=== PATIENT | female | born 1990 | race Caucasian/White ===

== ENCOUNTER 2023-04-30 13:46 | Outpatient (CLI) | payer OTHER, SELFPAY ==
--- NOTE | 2023-04-30 14:00 | CRLHL7_ITS ---
For Patients: As a result of the Cures Act, medical imaging exams and procedure reports are released immediately into your electronic medical record. You may view this report before your referring provider. If you have questions, please contact your health care provider. INDICATION: First trimester dating. TECHNIQUE: Ultrasound OB pelvis transabdominal and transvaginal. Real-time zuñiga-scale imaging of the pelvis was performed. COMPARISON: None. FINDINGS: Intrauterine gestational sac: Present. Embryo present: Yes. Embryo cardiac activity: 187 BPM. [place] rump Length: 2.33 cm. Sonographic gestational age: 9 weeks 0 days. Sonographic estimated due date: December 03, 2023. Yolk sac: Normal. Perigestational hemorrhage: Small measuring 2 x 1 x 1 cm. Ovaries and adnexae: Unremarkable. No suspicious lesions or fluid collections. IMPRESSION: Single viable intrauterine 9 weeks 0 days. Small subchorionic hemorrhage present. No other abnormality. Dictated by Nader Horner MD @ 05/01/2023 9:07:50 AM (Electronically Signed)
== END 2023-04-30 13:47 | disposition home or self-care (01) ==
LOC: US 13:47
PROVIDERS: PCP Physician Assistant Medical; Visit Provider Advanced Practice Midwife
DX: Z34.91 Encounter for supervision of normal pregnancy, unspecified, first trimester (principal); O20.9 Hemorrhage in early pregnancy, unspecified; Z3A.09 9 weeks gestation of pregnancy
CPT/HCPCS: 76817; 84443; 86703; 86706; 86803; 86850; 86900; 86901; 87086; 87340

== ENCOUNTER 2023-04-30 15:15 | Outpatient (CLI) | payer OTHER, SELFPAY | END 2023-04-30 15:16 | disposition home or self-care (01) | PROVIDERS: PCP Physician Assistant Medical; Visit Provider Advanced Practice Midwife | DX: O09.811 Supervision of pregnancy resulting from assisted reproductive technology, first trimester (principal); Z3A.08 8 weeks gestation of pregnancy | CPT/HCPCS: 84443; 86592; 86703; 86704; 86706; 86762; 86787; 86803; 86850; 86900; 86901; 87086; 87340 ==

== ENCOUNTER 2023-09-17 13:35 | Outpatient (CLI) | payer BC, SELFPAY | END 2023-09-17 13:36 | disposition home or self-care (01) | LOC: NFLDREF 09-24 07:48 | PROVIDERS: PCP Physician Assistant Medical; Referring Provider Physician Assistant Medical; Visit Provider Advanced Practice Midwife | DX: Z34.92 Encounter for supervision of normal pregnancy, unspecified, second trimester (principal) | CPT/HCPCS: 86592 ==

== ENCOUNTER 2023-10-15 08:00 | Outpatient (CLI) | payer BC, SELFPAY ==
--- NOTE | 2023-10-15 08:15 | US_ITS ---
Patient: ABEBE ZAYAS Facility:?[facility] Patient ID:?[id number] Site Patient ID:?[id number]. Site :?1990 Study:?US-OB Pelvis OB F/U-10/15/2023 8:56:48 AM Ordering Physician:?Chang Jason Final Report: INDICATION: Third trimester scan, evaluate growth. COMPARISON: 08/06/2023 TECHNIQUE: Real time zuñiga scale imaging of the fetus was performed. FINDINGS: Sonographic imaging demonstrates a single living intrauterine gestation. Fetus demonstrates a regular cardiac rate of 142 beats per minute. Fetus has a vertex position. The placenta lies anteriorly. Amniotic fluid volume appears normal and there is a single deepest vertical pocket: 3.4 cm. The estimated weight is 2532gm which lies at the 96th %. On the prior OB ultrasound exam dated 08/06/2023 the estimated weight was at the 79th%. BPD greater than 97th percentile. HC 92nd percentile. AC 87th percentile. FL 95th percentile. The HC/AC ratio measures 1.06 range (0.93-1.09). IMPRESSION: Sonographic gestational age 35 weeks 4 days and sonographic due date of 11/15/2023. Sonographic age 3 weeks ahead of the clinical age. Estimated weight 96th percentile. Abdominal circumference 87th percentile. Dictated by Sincere Israel MD @ 10/16/2023 9:24:30 AM Signed by:?Sincere Israel MD @10/16/2023 9:24:30 AM (Electronic Signature)
== END 2023-10-15 08:01 | disposition home or self-care (01) ==
LOC: US 08:00
PROVIDERS: PCP Physician Assistant Medical; Visit Provider Advanced Practice Midwife
DX: O09.813 Supervision of pregnancy resulting from assisted reproductive technology, third trimester (principal); Z3A.35 35 weeks gestation of pregnancy
CPT/HCPCS: 76816

== ENCOUNTER 2023-10-23 06:59 | Outpatient (CLI) | payer BC, SELFPAY ==
[2023-10-23 07:09] VITALS: PULSE 85; O2SAT 99
[2023-10-23 07:14] VITALS: PULSE 83; O2SAT 97
[2023-10-23 07:15] VITALS: BP 128/77; PULSE 74
[2023-10-23 07:27] VITALS: RESP 18; TEMP 36.4
--- NOTE | 2023-10-23 08:24 | PC.OBNST ---
NST Note NST Note Start: 10/23/23 07:25 Freq: ONCE Status: Active Protocol: Document 10/23/23 08:20 MMB (Rec: 10/23/23 08:22 MMB [id number]) NST Note 1 Para (# of births) 0 EDC 12/06/23 Gestational Age In Weeks & Days 33 Weeks & 5 Days Reactive Yes Appropriate for Gestational Age Yes RN Sharee López RN Date 10/23/23 Reactive Yes Appropriate for Gestational Age Yes RN Sharee Saunders RN Date 10/23/23 OB NST charge Yes Complete NST Note via Write Note Yes The provider's electronic signature indicates the NST is reactive/appropriate for gestational age. *Note to provider: If an addendum is required, open the patient's chart and click on the note under the Nurse/Allied Health tab.
== END 2023-10-23 07:40 | disposition home or self-care (01) ==
LOC: OB OUT 06:59 → OB 06:59
PROVIDERS: PCP Physician Assistant Medical; Visit Provider Advanced Practice Midwife
DX: O36.8130 Decreased fetal movements, third trimester, not applicable or unspecified (principal); Z3A.33 33 weeks gestation of pregnancy
CPT/HCPCS: 59025; G0463

== ENCOUNTER 2023-11-05 08:10 | Outpatient (CLI) | payer BC, SELFPAY ==
[2023-11-05 08:40] VITALS: RESP 16; TEMP 37
[2023-11-05 08:42] VITALS: BP 129/83; PULSE 109; PULSE 116; O2SAT 97
[2023-11-05 08:59] VITALS: BP 125/80; PULSE 118
[2023-11-05 09:39] LABS: Hematocrit 43.7 % (33.0-51.0); Hemoglobin* 15.2 gm/dL (12.0-16.0); Mean Corpuscular HGB Conc 35 gm/dL (32-36); Mean Corpuscular Hemoglobin 31 pg (26-34); Mean Corpuscular Volume 88 fL (80-100); Platelet Count* 146 K/uL (140-440); Red Blood Count 4.97 m/uL (4.00-5.20); Slide Review Reflex No
[2023-11-05 09:55] LABS: Alanine Aminotransferase* 16 U/L (4-35); Aspartate Amino Transferase* 25 U/L (12-35); Blood Urea Nitrogen* 11 mg/dL (5-24); Creatinine* 0.5 mg/dL (0.5-1.5); Estimated Glomerular Filt Rate 125 ml/min
[2023-11-05 09:57] LABS: Total Protein Urine 8 mg/dL
[2023-11-05 09:58] VITALS: BP 132/88; PULSE 103; PULSE 98; O2SAT 98
[2023-11-05 09:58] LABS: Creatinine Urine 231.7 mg/dL
[2023-11-05] MEDS: LACTATED RINGERS 1000 ML 1,000 ML IV (09:58)
[2023-11-05] MEDS: ONDANSETRON 2 MG/ML inj 4 MG IVP (09:59)
[2023-11-05 10:23] VITALS: BP 122/82; PULSE 93
--- NOTE | 2023-11-05 11:30 | PC.OBNST ---
NST Note NST Note Start: 11/05/23 08:31 Freq: ONCE Status: Active Protocol: Document 11/05/23 11:28 MMB (Rec: 11/05/23 11:30 MMB [id number]) NST Note 1 Para (# of births) 0 EDC 12/06/23 Gestational Age In Weeks & Days 35 Weeks & 4 Days Patient Presented with Complaint(s) of Nausea and vomiting Reactive Yes Appropriate for Gestational Age Yes RN Sharee López RN Date 11/05/23 Reactive Yes Appropriate for Gestational Age Yes ADOLFO Calix RN Date 11/05/23 OB NST charge Yes Complete NST Note via Write Note Yes The provider's electronic signature indicates the NST is reactive/appropriate for gestational age. *Note to provider: If an addendum is required, open the patient's chart and click on the note under the Nurse/Allied Health tab.
== END 2023-11-05 11:10 | disposition home or self-care (01) ==
LOC: OB OUT 08:16 → OB 08:18
PROVIDERS: PCP Advanced Practice Midwife; Visit Provider Advanced Practice Midwife
DX: O21.2 Late vomiting of pregnancy (principal); Z3A.35 35 weeks gestation of pregnancy
CPT/HCPCS: 36415; 59025; 82565; 82570; 84156; 84450; 84460; 84520; 85027; G0463; J2405; J7120

== ENCOUNTER 2023-11-12 13:30 | Outpatient (RCR) | payer BC, SELFPAY | END 2024-01-01 08:05 | disposition home or self-care (01) | PROVIDERS: PCP Physician Assistant Medical; Visit Provider Physician Assistant Medical | DX: N81.89 Other female genital prolapse (principal); Z51.89 Encounter for other specified aftercare | CPT/HCPCS: 97110; 97112; 97140; 97161; 97535 ==

== ENCOUNTER 2023-11-14 09:08 | Outpatient (CLI) | payer BC, SELFPAY ==
--- NOTE | 2023-11-14 09:15 | US_ITS ---
Patient: ABEBE ZAYAS Facility:?[facility] Patient ID:?[id number] Site Patient ID:?[id number]. Site :?1990 Study:?US-OB Pelvis BPP-11/14/2023 9:49:58 AM Ordering Physician:?Jenny Acevedo Final Report: INDICATION: IVF COMPARISON: Ob ultrasound from 10/15/2023 FINDINGS: Transabdominal examination of the is performed. A single intrauterine gestation is seen in cephalic presentation with regular cardiac activity at 142 beats per minute. The placenta is anterior and is free of the cervical os. The placental grade is 1 and the amniotic fluid volume is normal. The DVP is normal at 5.9 cm. The biophysical profile score is 8/8 with no points off. IMPRESSION: 1. Single intrauterine gestation in cephalic presentation with regular cardiac activity. 2. Normal DVP at 5.9 cm. 3. Normal biophysical profile score of 8/8. Dictated by Bahman Goodson MD @ 11/14/2023 8:26:17 PM Signed by:?Bahman Goodson MD @11/14/2023 8:26:17 PM (Electronic Signature)
== END 2023-11-14 09:09 | disposition home or self-care (01) ==
LOC: US 09:08
PROVIDERS: Visit Provider Advanced Practice Midwife
DX: O09.819 Supervision of pregnancy resulting from assisted reproductive technology, unspecified trimester (principal)
CPT/HCPCS: 76819; 87081; 87653

== ENCOUNTER 2023-11-26 14:03 | Outpatient (CLI) | payer BC, SELFPAY ==
--- NOTE | 2023-11-26 14:00 | US_ITS ---
Patient: ABEBE ZAYAS Facility:?[facility] Patient ID:?[id number] Site Patient ID:?[id number]. Site :?1990 Study:?US-OB Pelvis growth/BPP-11/26/2023 2:41:25 PM Ordering Physician:?Flora Bruno Final Report: INDICATION: IVF TECHNIQUE: Real time zuñiga scale imaging of the fetus was performed. COMPARISON: 11/14/2023 FINDINGS: Sonographic imaging demonstrates a single living intrauterine gestation. Fetus demonstrates a regular cardiac rate of 157 beats per minute. Fetus has a vertex position. The placenta lies anteriorly. Amniotic fluid volume appears normal and there is a single deepest pocket of 7.4 cm. The estimated weight is 3848gm which lies at the 88th %. On the prior OB ultrasound dated 10/15/2023 the estimated weight was at the 96th percentile. BPD greater than 97th percentile. HC is 81st percentile. AC 89th percentile. FL is 38th percentile. The fetus was active and demonstrated normal breathing movements. There was normal flexion and extension of the trunk and extremities. IMPRESSION: Normal biophysical profile score 8/8. Sonographic gestational age 39 weeks 3 days and sonographic due date of 11/30/2023. Sonographic age is 6 days ahead of the clinical age. Estimated weight 88th percentile. Abdominal circumference 89th percentile. Dictated by Sincere Israel MD @ 11/27/2023 10:13:27 AM Signed by:?Sincere Israel MD @11/27/2023 10:13:27 AM (Electronic Signature)
== END 2023-11-26 14:04 | disposition home or self-care (01) ==
LOC: US 14:03
PROVIDERS: Visit Provider Obstetrics & Gynecology
DX: O09.813 Supervision of pregnancy resulting from assisted reproductive technology, third trimester (principal); Z3A.39 39 weeks gestation of pregnancy
CPT/HCPCS: 76816; 76819

== ENCOUNTER 2023-12-04 06:32 | Inpatient (IN) | payer BC, SELFPAY ==
[2023-12-04] VITALS (85 sets, daily range): BP systolic 84–140; BP diastolic 53–93; PULSE 60–113; RESP 16; TEMP 36.6–37.3; O2SAT 97–100
--- NOTE | 2023-12-04 06:20 | W.PM.LDBA ---
Subjective History of Present Illness Narrative: Beronica is a 33 yo at 39 5/7 weeks gestation being admitted to Labor and Delivery for spontaneous onset of labor. Her contractions start as mild and irregular a few days ago. She was seen yesterday in clinic and felt that since she woke up she was having more period like cramps and some bloody show. Throughout the day, the contractions continued to become closer and more regular. She called last evening with some continued spotting but elected to continue to monitoring and labor for longer at home. She presented early this morning when contractions were about every 5 minutes apart. She was rechecked in triage after 2 hours and had made significant change and is requesting an epidural. She denies any leaking of fluid and bleeding is now less than prior. She is supported in labor by her , Thuy. Her full history and physical was dictated by Dr. Bruno on 11/19/2023. Please see this for details. Specific Issues/Plans - Thuy (They have a son, whom Thuy carried) Verito Ford H&P done by Dr. Bruno on 11/19/23 1. IVF recommended level II US with echo for 20 wk: Breech. Anterior placenta, no previa. 3 vessel cord. SDP 4.9. EFW 89%. No abnormalities, but missing views. 08/06/2023: Unremarkable follow-up US with normal echo. Growth at 32 wks: EFW 96% Growth at 38.4 wks: EFW 87%, BPP 8/8, SDP 7.4 Weekly NST at 36 weeks ([facility] recommends weekly BPP): will alternate between NST and BPP. Testing worksheet filled out. taking until 05/10 estrace 2mg BID and progesterone in oil 1x daily per fertility clinic 2. Anxiety on Lexapro, increased to 20 mg at 36 wks has seen therapist in past, considering restarting 3. AMA will be 35 at time of delivery declined genetic screening level II planned for IVF: see above 4. Hx of endometrioma removal pt to request records 5. Asthma takes daily Singulair does not have inhaler currently, not used for years 6. Rubella NON immune, needs vaccine PP. 7. Covid in at 15-16 weeks 8. Low platelets at 35 weeks -146 previous results in 200's--Consider platelet check on admit COVID: initial series boosted x2 Flu: 04/30/2023 TDAP: 10/01/2023 32wk Mental Health: 10/15/2023 PHQ: 0 VETO: 1 34wk Hgb:15.2 OB - Problem Based A/P Additional Plan (1) Pain during labor: Status: Acute (2) resulting from in-vitro fertilization: Status: Acute (3) Asthma: Problem details: takes singulair daily Status: Acute (4) Anxiety: Status: Acute (5) 39 weeks gestation of : Status: Acute Plan ASSESSMENT:? 35 at 39 5/7 weeks gestation? complicated by:?IVF , Anxiety, AMA, Hx of endometrioma removal, mild asthma, Rubella non-immune, low platelets at 35 weeks Labor type: Spontaneous, Early labor? Category 1 FHR pattern.?? Labor complicated by: none? GBS negative? ? PLAN:? 1. Routine intrapartum cares as ordered. Continue with expectant management? 2. Monitoring per policy, continuous with epidural? 3. Desires epidural. Candidate for analgesia of choice when requested. CBC on admission due to previously mildly low platelets.?? 4. Patient encouraged to reposition and ambulate to promote physiologic labor and .? 5. Anticipate Delivery/Labor/Induction Plan Plan: expectant management OB Exam Physical Exam Vital signs: Pulse BP Pulse Ox 60 136/85 100 12/04/23 04:18 12/04/23 04:18 12/04/23 04:24 Narrative: Vitals Reviewed Constitutional:? Alert and oriented x3 HEENT:? Normocephalic, atraumatic Neck:? Supple Lungs:? Clear to auscultation bilaterally Heart:? Regular rate and rhythm, no murmur, rub or gallop Abdomen:? Soft, nontender, and gravid. Vertex by Matt's, confirmed with cervical exam. Extremities:? No edema or erythema Cervix: 4 cm/50%/-1 station/vertex per RN, posterior NST: 135 bpm/moderate variability/15x15 accelerations/no decelerations/contractions every 1-3 minutes
[2023-12-04] MEDS: LACTATED RINGERS 1000 ML 1,000 ML 500 ML IV ×2 (06:46→08:55)
[2023-12-04 06:54] LABS: Basophils Absolute Auto 0.01 K/uL (0.00-0.30); Basophils Percent Auto 0.1 % (0.0-3.0); Eosinophils Absolute Auto 0.02 K/uL (0.00-0.50); Eosinophils Percent Auto 0.2 % (0.0-7.0); Hematocrit 42.4 % (33.0-51.0); Hemoglobin* 14.7 gm/dL (12.0-16.0); Immature Granulocytes Abs Auto 0.04 K/uL (0.00-0.30); Immature Granulocytes Pct Auto 0.4 %; Lymphocytes Percent Auto 17.8 % (20-44); Mean Corpuscular HGB Conc 35 gm/dL (32-36); Mean Corpuscular Hemoglobin 30 pg (26-34); Mean Corpuscular Volume 87 fL (80-100); Monocytes Percent Auto 5.7 % (0.0-11.0); Neutrophils Percent Auto 75.8 % (42.0-72.0); Platelet Count* 247 K/uL (140-440); RDW Coefficient of Variation % 12.1 % (11.5-15.5); White Blood Count* 10.06 K/uL (4.50-11.00)
[2023-12-04 06:56] LABS: Slide Review Reflex No
--- NOTE | 2023-12-04 08:14 | P.OBPN_ITS ---
Subjective Time Seen by Provider: 08:14 Date Seen: 12/04/23 Narrative: Beronica is ambulating in the cronin supported by her up partner. She did want an epidural and her IV bolus was started but after her planting machine operator arrived she decided she would like to do a few position changes and ambulate before planning on getting an epidural. They are working on side lying release. She is having some back pain with contractions so encouraged upright and for hanson leaning positions. She is breathing through contractions and coping well at this time. Objective Vital Signs: Last Vital Signs Pulse 60 12/04/23 04:18 BP 136/85 12/04/23 04:18 Pulse Ox 100 12/04/23 04:24 Contractions Monitor mode: External Contraction Frequency: 2-5 Contraction pattern: Regular Assessment Assessment: early labor Heart Rate Baseline: [address] Half-[address] Variability: Moderate (6-25) Monitor Accelerations: Present Monitor Decelerations: None Plan Plan: ASSESSMENT:? 35 at 39 5/7 weeks gestation? complicated by:?IVF , Anxiety, AMA, Hx of endometrioma removal, mild asthma, Rubella non-immune, low platelets at 35 weeks Labor type: Spontaneous, Early labor? Category 1 FHR pattern.?? Labor complicated by: none? GBS negative? ? PLAN:? 1. Routine intrapartum cares as ordered. Continue with expectant management? 2. Monitoring per policy, continuous with epidural? 3. Desires epidural. Candidate for analgesia of choice when requested.?? 4. Patient encouraged to reposition and ambulate to promote physiologic labor and .? 5. Anticipate
[2023-12-04] MEDS: LIDOCAINE 2% (PF) 5 ML VIAL EPIDURAL (09:04)
[2023-12-04] MEDS: ROPIVACAINE 0.2% 100 ml 100 ML 12 MG EPIDURAL ×2 (09:06→17:08)
--- NOTE | 2023-12-04 09:14 | P.ANBPRC_ITS ---
[facility] Medical History Endometrioma ?N80.129 - Deep endometriosis of ovary, unspecified ovary (ICD-10) Family History Paternal Grandfather Cardiovascular disease Sister Diabetes Thyroid disease Sister Thyroid disease Social History Narrative: SOCIAL? ? Education: masters? ? Work: Mental health therapist with the [employer]? ? Partner: Thuy? works as a PT? Lives with: Thuy and Jamal age 2 (their child her partner carried)? ? Pets: one dog? ? Abuse: Denies past Safe at home with current partner ? ? ? Special Diet: Denies? ? Ok with a blood transfusion: yes? ? Culture or temple beliefs: denies? RISK FACTORS? ? Exercise Times/wk: 3-5 times a week, weight training and running? ? Depression/Anxiety: anxiety currently on Lexapro? ? Previous Treatments yes medication and therapy in past ? Therapy planning to restart VETO: 5 PHQ 9: 2? ? Seat Belt Use: Routinely ? Smoking: Denies past/present? ? Alcohol/day: Denies while , social drinker when not Caffeine: one cup of coffee day? ? Drug Use: Denies past/present? What is your current living situation?: I presently have a place to live Problems where you live: no known problems In the past 12 months, utilities in danger of being shut off: no In past 12 months, lack of transportation kept you from medical appts, meetings, work, or getting things needed for daily living: no In the past 12 mos, have been you worried that your food would run out before you had money to buy more?: never true In the past 12 mos, the food you bought just didn't last and you didn't have money to buy more?: never true Smoking Status: Never smoker How often does anyone, including family, friends and others, physically hurt you : never How often does anyone, including family, friends and others, insult or talk down to you: never How often does anyone, including family, friends and others, threaten you with harm: never How often does anyone, including family, friends and others, scream or curse at you: never Little interest or pleasure in doing things: not at all Feeling down, depressed, or hopeless: not at all Meds Home Medications and Allergies Home Medications ?Medication ?Instructions ?Recorded ?Confirmed ?Type aspirin 81 mg chewable tablet 81 mg PO QDAY 04/30/23 12/04/23 History cetirizine 10 mg tablet (Zyrtec) 10 mg PO QDAY PRN 04/30/23 12/04/23 History cholecalciferol (vitamin D3) 50 50 mcg PO QDAY 04/30/23 12/04/23 History mcg (2,000 unit) capsule escitalopram oxalate 10 mg tablet 10 mg PO QDAY 04/30/23 12/04/23 History (Lexapro) montelukast 10 mg tablet 10 mg PO QDAY 04/30/23 12/04/23 History vits no.126-ferrous fum 1 tab PO DAILY 04/30/23 12/04/23 History 28 mg iron-folic acid 800 mcg tablet (Classic ) Allergies Allergy/AdvReac Type Severity Reaction Status Date / Time Penicillins Allergy Mild Hives Verified 12/03/23 14:01 Results Labs Labs: Laboratory Results - last 24 hr 12/04/23 06:26 WBC 10.06 RBC 4.90 Hgb 14.7 Hct 42.4 MCV 87 MCH 30 MCHC 35 RDW Coeff of Jaydon 12.1 Plt Count 247 Neut % (Auto) 75.8 H Lymph % (Auto) 17.8 L Terrell % (Auto) 5.7 Eos % (Auto) 0.2 Baso % (Auto) 0.1 Neut # (Auto) 7.60 H Lymph # (Auto) 1.80 Terrell # (Auto) 0.60 Eos # (Auto) 0.02 Baso # (Auto) 0.01 Abs Immat Gran (auto) 0.04 Imm/Tot Granulo (auto) 0.4 Blood Type A Positive Antibody Screen NEGATIVE Vital Signs Vital Signs: Last Vital Signs Pulse 86 12/04/23 09:12 BP 122/82 12/04/23 09:12 Pulse Ox 97 12/04/23 09:13 Weight: 86.5 kg Anesthesia Procedures Epidural Insertion Patient Location: OB Start Time: 08:50 Stop Time: 09:20 Start Date: 12/04/23 Stop Date: 12/04/23 Reason for Block: primary anesthetic Patient Position: sitting Performed By: Ravinder Milan Preanesthetic Checklist: IV checked, risks and benefits discussed, surgical consent, monitors and equipment checked, pre-op evaluation, timeout performed and anesthesia consent Prep: chlorhexidine gluconate Monitoring: blood pressure monitoring, monitoring and evaluation advisor, continuous pulse oximetry and heart rate Approach: midline Vertebral Space: lumbar (1-5) Needle Type: Tuohy needle Injection Technique: continuous catheter (catheter) Needle gauge: 17 Needle Length (cm): 10 cm Needle Insertion Depth (cm): 5 Catheter Gauge: 19 Catheter Type: multi-orifice Catheter at skin depth (cm): 10 Test Dose Result: negative and lidocaine 1.5% with epinephrine 1 to 200,000
--- NOTE | 2023-12-04 13:37 | PM.OBPNL ---
Subjective Time Seen by Provider: 13:00 Date Seen: 12/04/23 Narrative: Beronica is now resting comfortably with an effective epidural in place. Requested a SVE and found to be 6cm/90%/-1 and intact. Discussed and offered AROM but declines at this time. Continue to labor and reassess in a few hours or as requested. Objective Vital Signs: Last Vital Signs Temp 98 F 12/04/23 11:03 Pulse 72 12/04/23 13:34 BP 122/73 12/04/23 13:34 Pulse Ox 97 12/04/23 09:13 Pelvic Exam Dilation (cm): 6 Effacement (%): 90 Station: -1 Contractions Contraction Frequency: 3-9 minutes Contraction pattern: Irregular Assessment Assessment: active labor Station: -1 Heart Rate Baseline: 130 Telephone Order Dispatcher Variability: Moderate (6-25) Monitor Accelerations: Present Monitor Decelerations: None Plan Plan: ASSESSMENT:? 35 at 39 5/7 weeks gestation? complicated by:?IVF , Anxiety, AMA, Hx of endometrioma removal, mild asthma, Rubella non-immune, low platelets at 35 weeks Labor type: Spontaneous, active labor? Category 1 FHR pattern.?? Labor complicated by: none? GBS negative? ? PLAN:? 1. Routine intrapartum cares as ordered. Continue with expectant management? 2. Monitoring per policy, continuous with epidural? 3. Effective epidural analgesia in place. 4. Patient encouraged to reposition to promote physiologic labor and .? 5. Anticipate
[2023-12-04] MEDS: OMEPRAZOLE 20 MG CAPSULE DR 40 MG PO (15:12)
[2023-12-04] MEDS: LACTATED RINGERS 1000 ML 1,000 ML 125 ML IV (15:19)
--- NOTE | 2023-12-04 16:33 | PM.OBPNL ---
Subjective Date Seen: 12/04/23 Narrative: Beronica is requesting a SVE and consider AROM. AROM performed without difficultly with moderate amount of thinly stained meconium fluid. She is still comfortable with her epidural and feeling good. She is currently in throne position and has been rotating into multiple positions throughout labor. Objective Vital Signs: Last Vital Signs Temp 98 F 12/04/23 11:03 Pulse 85 12/04/23 16:33 BP 123/79 12/04/23 16:33 Pulse Ox 97 12/04/23 09:13 Pelvic Exam Dilation (cm): 8 Effacement (%): 90 Station: 0 Contractions Monitor mode: External Contraction Frequency: 2-5 Contraction pattern: Regular Contraction intensity: Strong/Firm Assessment Assessment: active labor Station: 0 Amniotic Membrane Status: AROM Status: Category ll Heart Rate Baseline: 140 Commercial Lending Vice President Variability: Moderate (6-25) Monitor Accelerations: Present Monitor Decelerations: Variable (one variable after AROM but none since) Plan Plan: ASSESSMENT:? 35 at 39 5/7 weeks gestation? complicated by:?IVF , Anxiety, AMA, Hx of endometrioma removal, mild asthma, Rubella non-immune, low platelets at 35 weeks Labor type: Spontaneous, active labor? Category 1 FHR pattern.?? Labor complicated by: thin meconium stained fluid? GBS negative? ? PLAN:? 1. Routine intrapartum cares as ordered. Continue with expectant management? 2. Monitoring per policy, continuous with epidural? 3. Effective epidural analgesia in place. 4. Patient encouraged to reposition to promote physiologic labor and .? 5. Anticipate
[2023-12-04] MEDS: ACETAMINOPHEN 500 MG TABLET 1000 MG PO (20:38)
[2023-12-05] VITALS (38 sets, daily range): BP systolic 108–154; BP diastolic 70–88; PULSE 70–131; RESP 14–16; TEMP 36.6–36.9; O2SAT 94–98
[2023-12-05] MEDS: LACTATED RINGERS 1000 ML 1,000 ML 125 ML IV ×2 (00:34→03:18)
[2023-12-05] MEDS: ROPIVACAINE 0.2% 100 ml 100 ML 12 MG EPIDURAL (00:48)
--- NOTE | 2023-12-05 01:04 | P.OBPN_ITS ---
Subjective Date Seen: 12/05/23 Narrative: Beronica progressed to complete and began pushing around 0. She has been pushing effectively and has been in many different positions with help from her partner, non cdl driver and the nursing staff. She has now been pushing for 3 hours. We discussed risks of prolonged pushing including risks to baby, hemorrhage and maternal exhaustion. Discussed options for proceeding including delivery, expectant management, and MD evaluation for possibly other options such as opera tive vaginal delivery. She would like to have an MD evaluation and she was notified. Will plan to continue to push and change positions as needed until she arrives Objective Vital Signs: Last Vital Signs Temp 99.1 F 12/04/23 21:48 Pulse 81 12/05/23 00:49 Resp 16 12/04/23 20:33 BP 141/80 H 12/05/23 00:49 Pulse Ox 98 12/04/23 18:37 Pelvic Exam Dilation (cm): 10 Effacement (%): 100 Station: +1 to +2 with pushing Contractions Monitor mode: External Contraction Frequency: 2-4 Contraction pattern: Regular Contraction intensity: Strong/Firm Assessment Assessment: active labor Station: +1 Amniotic Membrane Status: AROM Status: Category ll Heart Rate Baseline: 155 Paddock Judge Variability: Moderate (6-25) Monitor Accelerations: Present Monitor Decelerations: Variable Plan Plan: ASSESSMENT:? 35 at 39 6/7 weeks gestation? complicated by:?IVF , Anxiety, AMA, Hx of endometrioma removal, mild asthma, Rubella non-immune, low platelets at 35 weeks Labor type: Spontaneous, active labor? Category 1 FHR pattern.?? Labor complicated by: thin meconium stained fluid? GBS negative? ? PLAN:? 1. Routine intrapartum cares as ordered. Continue with expectant management? 2. Continuous monitoring per policy.? 3. Effective epidural analgesia in place. 4. Patient encouraged to change positions to promote physiologic labor and .? 5. Pushing for 3+ hours. MD notified to evaluate per patients request. 5. Anticipate .
--- NOTE | 2023-12-05 01:58 | P.OBCN_ITS ---
OB - CN: HPI Date of Consult Time Seen by Provider: 01:58 Date Seen: 12/05/23 Patient: [facility] Patient Consult date: 12/05/23 Requesting Physician: Jenny Acevedo CNM Primary Care Provider: Not a Local Provider Consult Narrative Reason for consult: arrest of labor Narrative: The patient is a 33 year old G 1 P 0 at 39 weeks and 6 days gestation that was admitted to the Center on 12/04/23 for spontaneous onset of labor. Post called to see the patient by Jenny Acevedo CNM for arrest of descent after 3.5 hours of pushing the patient has made minimal progress in descent in the last hour. Assessment for possible operative vaginal delivery versus delive ry requested. History of Present Dating criteria: based on LMP care: good care Ultrasounds: normal 1st trimester US and normal mid trimester US History History 1 Elective abortions Para 0 Spontaneous abortions Hx # Term Pregnancies Ectopic pregnancies Hx # Pregnancies Multiple births Number of Living Children 0 Labs GBS status: negative OB Labs: Lab Assessment Start: 12/04/23 06:36 Freq: ONCE Status: Complete Protocol: PC.OBGBS Activity Type Activity Date Activity User E-sign Co-sign Detail Recorded Client Recorded Date Recorded By Document 12/04/23 07:39 ROAMANUEL [id number] 12/04/23 07:39 ROYB 12/04/23 07:39 Lab Assessment GBS Status negative GBS Additional Criteria None Are Labs Available Yes Maternal Blood Type A Maternal RH Factor Positive Evaluate Maternal Rubella Immune Status Non-Immune Hepatitis B Surface Antigen Negative Maternal HIV Status Negative Maternal Syphillis (RPR) Status Negative PFSH PFSH Medical History Endometrioma ?N80.129 - Deep endometriosis of ovary, unspecified ovary (ICD-10) Family History Paternal Grandfather Cardiovascular disease Sister Diabetes Thyroid disease Sister Thyroid disease Social History Narrative: SOCIAL? ? Education: masters? ? Work: Mental health therapist with the [employer]? ? Partner: Thuy? works as a PT? Lives with: Thuy and Max age 2 (their child her partner carried)? ? Pets: one dog? ? Abuse: Denies past Safe at home with current partner ? ? ? Special Diet: Denies? ? Ok with a blood transfusion: yes? ? Culture or denominational beliefs: denies? RISK FACTORS? ? Exercise Times/wk: 3-5 times a week, weight training and running? ? Depression/Anxiety: anxiety currently on Lexapro? ? Previous Treatments yes medication and therapy in past ? Therapy planning to restart VETO: 5 PHQ 9: 2? ? Seat Belt Use: Routinely ? Smoking: Denies past/present? ? Alcohol/day: Denies while , social drinker when not Caffeine: one cup of coffee day? ? Drug Use: Denies past/present? What is your current living situation?: I presently have a place to live Problems where you live: no known problems In the past 12 months, utilities in danger of being shut off: no In past 12 months, lack of transportation kept you from medical appts, meetings, work, or getting things needed for daily living: no In the past 12 mos, have been you worried that your food would run out before you had money to buy more?: never true In the past 12 mos, the food you bought just didn't last and you didn't have money to buy more?: never true Smoking Status: Never smoker How often does anyone, including family, friends and others, physically hurt you : never How often does anyone, including family, friends and others, insult or talk down to you: never How often does anyone, including family, friends and others, threaten you with harm: never How often does anyone, including family, friends and others, scream or curse at you: never Little interest or pleasure in doing things: not at all Feeling down, depressed, or hopeless: not at all Meds Home Medications and Allergies Home Medications ?Medication ?Instructions ?Recorded ?Confirmed ?Type aspirin 81 mg chewable tablet 81 mg PO QDAY 04/30/23 12/04/23 History cetirizine 10 mg tablet (Zyrtec) 10 mg PO QDAY PRN 04/30/23 12/04/23 History cholecalciferol (vitamin D3) 50 50 mcg PO QDAY 04/30/23 12/04/23 History mcg (2,000 unit) capsule escitalopram oxalate 10 mg tablet 10 mg PO QDAY 04/30/23 12/04/23 History (Lexapro) montelukast 10 mg tablet 10 mg PO QDAY 04/30/23 12/04/23 History vits no.126-ferrous fum 1 tab PO DAILY 04/30/23 12/04/23 History 28 mg iron-folic acid 800 mcg tablet (Classic ) Allergies Allergy/AdvReac Type Severity Reaction Status Date / Time Penicillins Allergy Mild Hives Verified 12/03/23 14:01 OB - H&P: Exam Physical Exam: Vital signs: Temp Pulse Resp BP Pulse Ox 99.1 F 92 16 132/75 98 12/04/23 21:48 12/05/23 01:49 12/04/23 20:33 12/05/23 01:49 12/04/23 18:37 Narrative: General: Patient very uncomfortable with contractions and complaining of pain in her left hip. Vital signs: Per the patient's electronic medical record SVE: Complete/100%/0 to +1 station. Asynclytic and OT. OB - Results Labs Labs: Short CBC 12/04/23 Range/Units 06:26 WBC 10.06 (4.50-11.00) K/uL Hgb 14.7 (12.0-16.0) gm/dL Hct 42.4 (33.0-51.0) % Plt Count 247 (140-440) K/uL OB - CN: A/P Assessment and Plan (1) Pain during labor: Status: Acute (2) resulting from in-vitro fertilization: Status: Acute (3) Asthma: Problem details: takes singulair daily Status: Acute (4) Anxiety: Status: Acute (5) 39 weeks gestation of : Status: Acute (6) Arrest of descent, delivered, current hospitalization: Start date: 12/05/23 Start time: 03:00 Status: Acute Assessment and Plan: 1. Recommended primary low-transverse for arrest of descent 2. Consent form reviewed and signed. 3. Patient for surgery.
--- NOTE | 2023-12-05 02:03 | P.PCN_ITS ---
Procedure Note Time Seen by Provider: 04:09 Date Seen: 12/05/23 Date of procedure: 12/05/23 Will [facility] bill your pro fee for this procedure?: Yes Procedure: Preoperative diagnosis: 33 year-old 1 para 0 at 39 and 6/7 weeks Arrest of descent, suspect OT presentation and asynclitic Postoperative diagnosis: Same, ROT presentation Procedure: Primary low-transverse section Anesthesia: Epidural Surgeon: Ramonita Ashley MD Ground Equipment Mechanic: Not applicable Estimated blood loss: 770 mL IV Fluid: 1000 mL UOP: 500 mL Specimen: Placenta to pathology, cord gases Drain(s): Resendiz to gravity Findings: A live female infant was delivered from the are OT position at 3:27 a.m.. Apgars were 5 at 1 min and 8 at 5 min, respectively. Infant weight: 8 lb 9 oz. Nuchal cord(s): Single nuchal cord that was loose and easily reduced prior to delivery of the infant's body. The placenta was delivered spontaneously and complete at 3:29 a.m.. Amniotic fluid: Thick meconium meconium stained. Normal uterus, fallopian tubes and ovaries were noted. Procedure: Beronica was taken to the OR where epidural anesthetic was found be adequate. A Resendiz catheter was placed. The patient was then placed in the dorsal supine pos ition with a leftward tilt. She was then prepped and draped in a normal sterile manner. A Pfannenstiel skin incision was made and carried through sharply to the underlying layer of fascia. Fascia was incised in the midline and this incision carried laterally with Sam scissors. The superior aspect of fascial incision was grasped with Lauren clamps, tented up, and the rectus muscles dissected off with a combination of blunt and sharp dissection. The inferior aspect of the fascial incision was not dissected of the rectus muscles. The rectus muscles were in the midline. The peritoneum was entered bluntly. This opening was extended bluntly. An Zeyad-O self-retaining retractor was placed. A bladder flap was not created. Uterus was incised in a low transverse manner in the midline. This incision carried laterally with blunt pressure on the inferior and superior aspects of the uterine incision. The amniotic sac was ruptured. The 's head was somewhat impacted in the pelvis so the head needed to be lifted to the incision and the left rectus muscle was incised to allow room for the infant's head to be delivered. The 's head and body was delivered atraumatically. The infant was shown to the patient and her support person and then handed to waiting pediatric and nursing staff. The placenta was delivered spontaneously. The uterus was cleared of clots and debris. The uterine incision was re-approximated with the uterus in vivo. The 1st layer using 0-Vicryl in a running, locked manner. The 2nd layer using 0-Monocryl in a running, vertical, imbricating laye r. Additional sutures needed for hemostasis: Yes: 2 figure of 8 sutures using 2-0 chromic. Ramandeep was applied to the uterine incision. Excellent hemostasis was verified. The Zeyad retractor was removed. The rectus muscles were not reapproximated. The rectus muscles were then closely inspected to verify hemostasis. Hemostasis was obtained with bipolar cautery. The fascia was then re-approximated using 0-Maxon loop in a running manner. The subcutaneous tissue was then irrigated with saline and hemostasis obtained with bipolar cautery. The subcutaneous tissue was re-approximated using 3-0 plain gut in a running manner. The skin was reapproximated using 4-0 Monocryl in a running subcuticular manner. Exofin skin adhesive and a Mepiplex dressing were applied. The patient tolerated this procedure well. Sponge, lap and instrument counts were correct x2 active to the procedure. Patient was taken to the recovery area in stable condition. The patient received 2g of IV Ancef and 500 mg of IV is azithromycin prior to skin incision.
[2023-12-05] MEDS: CEFAZOLIN 2 GM INJ IVP (02:58)
--- NOTE | 2023-12-05 04:56 | W.ANESCHARGE ---
Anesthesia Charges Start Date/Time Anesthesia Start Date: 12/05/23 Anesthesia Start Time: 02:55 Stop Date/Time Anesthesia Stop Date: 12/05/23 Anesthesia Stop Time: 04:30 Summary Emergency: FAST FOOD COOK
--- NOTE | 2023-12-05 04:57 | P.NB_ITS ---
Nerve Block Nerve Block Time Seen by Provider: 04:25 Date Seen: 09/19/23 Type of block requested by surgeon for post-operative analgesia: TAP Side: bilateral Time out performed: Yes Verification of patient name: Yes Verification of date of : Yes Site marking: site marked Name of person performing procedure: Silvina ramirez Continuous monitoring Was continuous monitoring of O2 sat, B/P, life skills instructor, recorded every 15 minutes?: Yes Procedure Checklist: sterile prep, needles and gloves Ultrasound guided. Images saved: Yes Medications given in 5ml increments after negative aspiration: Marcaine %: 0.25 mL: 20 and Exparel mL: 10 Patient tolerated procedure well: Yes Block Charges Block Charge (with Pro Fee): TAP Bilateral Use of Ultrasound Machine for Block: Yes- US Guidance/pain block
[2023-12-05] MEDS: ESCITALOPRAM 10 MG TABLET PO (08:29)
[2023-12-05] MEDS: ACETAMINOPHEN 500 MG TABLET 1000 MG PO ×2 (08:55→19:48)
[2023-12-05] MEDS: KETOROLAC 30 MG/ML inj IVP ×3 (09:50→22:04)
[2023-12-05] MEDS: OMEPRAZOLE 20 MG CAPSULE DR 40 MG PO (12:10)
--- NOTE | 2023-12-05 13:35 | PM.ANPOST ---
Post Anesthesia Note Post Anesthesia Note Patient seen: Inpatient Respiratory Status: adequate Cardiovascular Status: adequate Mental Status: baseline Pain: adequate Temp: baseline Anesthetic awareness: N/A Complications: none Follow care: none
[2023-12-05 18:46] LABS: Rapid Plasma Reagin (RPR) Non Reactive (Non Reactive)
[2023-12-05] MEDS: DOCUSATE SODIUM 100 MG CAPSULE PO (21:09)
[2023-12-05] MEDS: CETIRIZINE HCL 10 MG TABLET PO (21:09)
[2023-12-05] MEDS: MONTELUKAST 10 MG TABLET PO (21:09)
[2023-12-06] VITALS (8 sets, daily range): BP systolic 112–128; BP diastolic 79–86; PULSE 64–76; RESP 14–18; TEMP 26.5–36.8; O2SAT 96–97
[2023-12-06] MEDS: KETOROLAC 30 MG/ML inj IVP ×2 (03:51→09:57)
[2023-12-06] MEDS: OMEPRAZOLE 20 MG CAPSULE DR 40 MG PO (06:49)
[2023-12-06] MEDS: ACETAMINOPHEN 500 MG TABLET 1000 MG PO ×3 (06:49→19:07)
--- NOTE | 2023-12-06 09:13 | PM.OBPNVD1 ---
OB - PN:Subj Subjective Time Seen by Provider: 09:13 Date Seen: 12/06/23 Patient comments OB post-: no complaints status: feeding status: exclusively Narrative: POD#1 s/p uncomplicated delivery. She is ambulating without difficulty, urinating adequately and pain is well controlled. Denies concerns. She is exclusively without difficulty. OB - PN: Obj Exam Physical Exam: Vital signs: Temp Pulse Resp BP Pulse Ox O2 Del Method 97.7 F 64 16 112/80 97 Room Air 12/06/23 03:05 12/06/23 03:05 12/06/23 03:58 12/06/23 03:05 12/06/23 03:05 12/06/23 03:05 Narrative: GENERAL APPEARANCE: Pleasant, , well-groomed woman in no acute distress. VITAL SIGNS: as noted in nursing notes HEAD: Normocephalic, atraumatic. THYROID: no masses, nodularity, tenderness or enlargement. LUNGS: Clear to auscultation bilaterally without wheezes, rales or rhonchi. HEART: Regular rate and rhythm with normal S1 and S2. No gallop, rub or murmur. ABDOMEN: Gravid. Soft, nontender, nondistended, with normal bowels sounds throughout. FUNDUS: 1 cm below the umbilicus in the midline and firm. INCISION: Clean, dry and intact with sutures and skin adhesive gel. EXTREMITIES: No cyanosis, clubbing. 1+ bilateral lower extremity edema to the ankle: Normal. Now varicosities. NEUROLOGIC: Normal gait and balance. Normal deep tendon reflexes at bilateral patella 2+/2, equal without clonus. PSYCHIATRIC: alert and oriented x3. Normal speech pattern, eye contact and affect. SKIN: Warm, dry, and well perfused. Good turgor. No lesions, nodules or rashes. Urinary Catheter Management: Urethral: Cath placed during this visit: yes, but has since been removed by the nurse Reason for continuing: decision to DC catheter Insertion date: 12/05/23 Insertion time: 02:55 Removal date: 12/05/23 Removal time: 11:15 OB - PN: Obj Data Labs Labs: Laboratory Results - last 24 hr 12/04/23 12/06/23 06:26 06:17 Hgb 12.0 RPR Screen Non Reactive OB - PN: A/P Delivery Assessment and Plan (1) Status post primary low transverse section: Problem details: Girl, Sola Emanuel, Apgars 5/8, weight 8#9oz. Status: Acute Assessment and Plan: 1. Continue postoperative care. 2. Planning discharge home tomorrow.
[2023-12-06] MEDS: IBUPROFEN 600 MG TABLET PO ×2 (16:12→22:09)
[2023-12-06] MEDS: ESCITALOPRAM 10 MG TABLET PO (21:09)
[2023-12-06] MEDS: MONTELUKAST 10 MG TABLET PO (21:17)
[2023-12-06] MEDS: CETIRIZINE HCL 10 MG TABLET PO (21:17)
[2023-12-06] MEDS: DOCUSATE SODIUM 100 MG CAPSULE PO (22:17)
[2023-12-07] MEDS: ACETAMINOPHEN 500 MG TABLET 1000 MG PO ×2 (02:01→08:08)
[2023-12-07] MEDS: IBUPROFEN 600 MG TABLET PO ×2 (04:19→10:31)
--- NOTE | 2023-12-07 04:22 | P.DS_ITS ---
DS: Providers Provider Time Seen by Provider: 04:23 Date Seen: 12/07/23 Date of admission: 12/04/23 06:32 Primary care physician: Not a Local Provider Admitting Clinician: Jenny Acevedo CNM Attending Physician on discharge: Ramonita Ashley MD DS: Diagnosis Discharge Diagnosis (1) Status post primary low transverse section: Status: Acute Problem details: Girl, Jenae, Apgars 5/8, weight 8#9oz. (2) Arrest of descent, delivered, current hospitalization: Status: Acute Exam Narrative: Exam Narrative: GENERAL APPEARANCE: Pleasant, , well-groomed woman in no acute distress. VITAL SIGNS: as noted in nursing notes HEAD: Normocephalic, atraumatic. LUNGS: Clear to auscultation bilaterally without wheezes, rales or rhonchi. HEART: Regular rate and rhythm with normal S1 and S2. No gallop, rub or murmur. ABDOMEN: Gravid. Soft, nontender, nondistended, with normal bowels sounds throughout. FUNDUS: Firm, 1 cm below the umbilicus in midline INCISION: Clean, dry and intact with sutures and skin adhesive gel. EXTREMITIES: No cyanosis, clubbing, or varicosities. 2+ bilateral lower extremity edema to the mid urbina. NEUROLOGIC: Normal gait and balance. Normal deep tendon reflexes at bilateral patella 2+/2, equal without clonus. PSYCHIATRIC: alert and oriented x3. Normal speech pattern, eye contact and affect. SKIN: Warm, dry, and well perfused. Good turgor. No lesions, nodules or rashes. Const: Vital Signs, click to edit/add: Vital Signs - 24 hr 12/06/23 09:00 12/06/23 18:10 12/06/23 23:16 Temperature 79.7 F L 98.2 F 98.1 F Pulse Rate [Right Blood Pressure Cuf f] 76 71 64 Respiratory Rate 14 16 18 Blood Pressure [Ri ght Arm] 122/84 118/79 128/86 Pulse Oximetry 96 97 97 Oxygen Delivery Me thod Room Air Room Air Room Air OB - DS: Summary Hospital Course Hospital Course: The patient is a 33 year old G 1P 0 now 1001 at 39 and 0/7 weeks gestation that was admitted to the Center on 12/04/23 for induction of labor. She had an uncomplicated delivery. She delivered a viable female infant. She is breast feeding. the patient has done well. Peripartum Data Infant delivery method: Primary C/S; Labored Procedures: Procedures Operation Date: 12/05/23 02:45 Actual Procedure Side Surgeon p Section Not Applicable Ramonita Ashley MD complications: none [place] Infant Gender: Female Time Spent with Patient Time attestation: Total time spent providing and/or coordinating discharge services: Discharge Plan Discharge Disposition: Home, Self-Care Date of Admission: 12/04/23 06:32 Attending Provider on Discharge: Ramonita Ashley Primary Care Provider: Provider,Not a Local Condition: Stable Anticipated Discharge Date/Time: 12/07/23 12:30 Discharge Medications: New docusate sodium 100 mg Capsule 100 mg PO BID PRN (Reason: constipation) Qty: 100 0RF ibuprofen 600 mg Tablet 600 mg PO Q6H PRN (Reason: Pain) Qty: 30 0RF oxycodone 5 mg Tablet 5 mg PO 3XD PRN (Reason: Pain) Qty: 21 0RF Continued escitalopram oxalate [Lexapro] 10 mg tablet 10 mg PO QDAY montelukast 10 mg tablet 10 mg PO QDAY cetirizine [Zyrtec] 10 mg tablet 10 mg PO QDAY PRN Classic 28 mg iron- 800 mcg tablet 1 tab PO DAILY cholecalciferol (vitamin D3) 50 mcg (2,000 unit) capsule 50 mcg PO QDAY omeprazole 20 mg capsule,delayed release(DR/EC) 20 mg PO QDAY Qty: 30 3RF Discontinued aspirin 81 mg tablet,chewable 81 mg PO QDAY ondansetron HCl 4 mg tablet 4 mg PO Q6H PRN (Reason: nausea and vomiting) Qty: 20 0RF Discharge Orders: Discharge Order (Routine); Ordered 12/07/23 Ordered By: Ramonita Ashley Patient Education: (DC) Additional Instructions: ACTIVITY RESTRICTIONS: * Nothing vaginally for 6 weeks: no tampons/intercourse * No driving while taking narcotic pain medication during the day. 1-2 weeks. * Lifting restriction: Maximum of 20 pounds for 6 weeks. * High impact or core exercises: 6 weeks. * Submerge the incision in water (bath/pool/[place]): 2 weeks. * Off of work/school for a minimum of 8 weeks NO RESTRICTIONS for: * Walking * Going up/down stairs * Showering * Passenger in a motor vehicle Symptoms to report to doctor: -Bleeding that saturates more than one pad per hour ?-Passing clots larger than the size of a golf ball ?-Pain not relieved by prescribed medication ?-Fever above 100.4 degrees Fahrenheit ?-A foul vaginal odor ?-Difficulty in emotions, mood and functions ?-Thoughts of hurting yourself and/or ?-Painful, reddened area in your breast ?-Any drainage, redness or tenderness in your IV/epidural site ?-Severe headache that doesn't improve after taking medications ?-Changes in vision, including temporary loss of vision, blurred vision, and/or light sensitivity ?-Upper abdominal pain (usually under ribs on the right side) ?-Decrease in urination or painful, frequent urinating ?-Chest pain ?-Shortness of breath ?-Tenderness or pain with redness and/swelling in the calf(s) of your leg Follow-up: 1. [facility]: Incision check, evaluation for anxiety/depression, review concerns for care/. 2. A 6 week visit for an annual physical exam. consultation services are available to all mothers and babies for the first year after delivery.? To make an appointment, please call [phone]. Activity Level: Other Discharge Diet: Regular Follow Up Appointments: Provider,Not a Local [Primary Care Provider] - [facility] [Provider Group] Forms: [facility] Info Instructions
[2023-12-07 07:40] VITALS: BP 121/77; PULSE 76; RESP 16; TEMP 36.6; O2SAT 97
[2023-12-07] MEDS: DOCUSATE SODIUM 100 MG CAPSULE PO (08:08)
[2023-12-07] MEDS: OMEPRAZOLE 20 MG CAPSULE DR 40 MG PO (08:08)
[2023-12-07] MEDS: MEASLES,MUMPS,RUBELLA VACC/PF 1 DOSE INJ 1 EACH SUBCUT (08:09)
== END 2023-12-07 11:33 | disposition home or self-care (01) | DRG 540 ==
LOC: OB OUT 06:33 → OB 06:33
PROVIDERS: Obstetrics & Gynecology; Admitting Provider Advanced Practice Midwife; Visit Provider Advanced Practice Midwife
PROC: (CPT 59514; principal; 2023-12-05 02:30)
DX: O32.4XX0 Maternal care for high head at term, not applicable or unspecified (principal); O99.344 Other mental disorders complicating childbirth; F41.9 Anxiety disorder, unspecified; Z3A.39 39 weeks gestation of pregnancy; Z37.0 Single live birth; O77.0 Labor and delivery complicated by meconium in amniotic fluid; J45.909 Unspecified asthma, uncomplicated; G89.18 Other acute postprocedural pain
CPT/HCPCS: 01967; 01968; 36415; 64488; 76942; 85018; 85025; 86592; 86850; 86900; 86901; 88307; 99140; A9270; C9290; J0456; J0665; J0690; J1100; J1885; J2274; J2371; J2405; J2590; J2795; J3010; J7120

== ENCOUNTER 2024-05-19 08:30 | Outpatient (RCR) | payer BC, SELFPAY | END 2024-08-10 12:54 | disposition home or self-care (01) | PROVIDERS: PCP Physician Assistant Medical; Visit Provider Advanced Practice Midwife | DX: N81.89 Other female genital prolapse (principal); Z51.89 Encounter for other specified aftercare | CPT/HCPCS: 97110; 97112; 97140; 97161; 97535 ==